=== PATIENT | male | born 1990 | race Caucasian/White ===

== ENCOUNTER 2017-03-28 08:13 | Emergency (ER) | payer MEDICAID ==
[~2017-03-28] VITALS: Ht 193 cm; Wt 120.0 kg
[2017-03-28 08:39] VITALS: BP 139/64
== END 2017-03-28 08:58 | disposition home or self-care (01) ==
LOC: ED 08:16
DX: F20.9 Schizophrenia, unspecified (principal); F41.9 Anxiety disorder, unspecified; F15.10 Other stimulant abuse, uncomplicated
CPT/HCPCS: 99284

== ENCOUNTER 2017-03-28 11:08 | Emergency (ER) | payer MEDICAID ==
[~2017-03-28] VITALS: Ht 193 cm; Wt 119.0 kg
[2017-03-28 11:11] VITALS: BP 168/74
== END 2017-03-28 11:47 | disposition left against medical advice (07) ==
LOC: ED 11:31
DX: Z53.21 Procedure and treatment not carried out due to patient leaving prior to being seen by health care provider (principal)